=== PATIENT | male | born 1940 ===

== ENCOUNTER 2023-09-11 13:05 | Outpatient (CLI) | payer BC, MEDICARE, SELFPAY | END 2023-09-11 13:06 | disposition home or self-care (01) | PROVIDERS: PCP Emergency Medicine; Visit Provider Emergency Medicine | DX: I10 Essential (primary) hypertension (principal); R53.83 Other fatigue; G62.9 Polyneuropathy, unspecified; N40.1 Benign prostatic hyperplasia with lower urinary tract symptoms; M79.669 Pain in unspecified lower leg | CPT/HCPCS: 80053; 82607; 82728; 84443 ==

== ENCOUNTER 2023-10-22 11:15 | Outpatient (RCR) | payer MEDICARE, SELFPAY | END 2024-02-19 23:59 | disposition home or self-care (01) | PROVIDERS: PCP Emergency Medicine; Visit Provider Orthopaedic Surgery Orthopaedic Surgery of the Spine | DX: Z98.890 Other specified postprocedural states (principal); M54.50 Low back pain, unspecified; M62.81 Muscle weakness (generalized); Z51.89 Encounter for other specified aftercare | CPT/HCPCS: 97110; 97140; 97161 ==